=== PATIENT | male | born 1960 ===

== ENCOUNTER 2022-02-23 12:05 | Observation (INO) ==
[2022-02-23 13:54] LABS: ABS Basophils 0.1 10^3/ul (0-0.2); ABS Eosinophils 0.6 10^3/ul (0-0.6); ABS Lymphocytes 1.5 10^3/ul (1.0-4.8); ABS Monocytes 1.2 10^3/ul (0-0.8); ABS Neutrophils 8.4 10^3/ul (1.5-7.7); Eosinophil % 4.9 %; Hematocrit 31 % (42-52); Lymphocyte % 13.1 %; Mean Corpuscular HGB Conc 32 g/dL (31-36); Mean Corpuscular Hemoglobin 31 pg (27-31); Mean Corpuscular Volume 97 fL (80-94); Mean Platelet Volume 6.8 fL (7.4-10.4); Nucleated Red Blood Cells % 0.1; Platelet Count 330 10^3/uL (150-450); Red Blood Count 3.22 10^6 /uL (4.18-5.48); Red Cell Distribution Width 16 % (10-15); White Blood Count 11.7 10^3/uL (3.5-10.8)
[2022-02-23 14:32] LABS: C Reactive Protein 9.31 mg/L (<8.01); Calcium 8.7 mg/dL (8.6-10.3); eGFR CKD-EPI 65.3 (>60)
[2022-02-23] MEDS ORDERED: Dextrose 50% Syringe 50 ml 25 GM/50 ML SYRINGE IV PUSH ONE (14:36)
[2022-02-23] MEDS ORDERED: CALCIUM GLUCONATE 1GM/50ML NS 1 GM/50 ML BAG IV ONE (14:36)
[2022-02-23] MEDS ORDERED: Albuterol 2.5mg/3 ml (0.083%) NEB.SOLN INH ONE (14:36)
[2022-02-23 14:37] LABS: Potassium 7.1 mmol/L (3.5-5.0)
[2022-02-23 16:42] LABS: Potassium, Whole Blood 6.4 mmol/L (3.4-4.5)
[2022-02-23] MEDS ORDERED: Lactated Ringers 1000 ml BAG 1,000 ML IV ONE (17:20)
[2022-02-23] MEDS ORDERED: Sodium Polystyrene ORAL.SUSP 15 GM/60 ML BTL PO ONE ×2 (17:21→17:22)
[2022-02-23 17:23] LABS: Potassium, Whole Blood 6.6 mmol/L (3.4-4.5)
[2022-02-23] MEDS ORDERED: NS 0.9% 1000 ml BAG 1,000 ML IV ONE (18:11)
[2022-02-23 18:44] LABS: Potassium, Whole Blood 4.5 mmol/L (3.4-4.5)
[2022-02-23] MEDS ORDERED: Dextrose 50% Syringe 50 ml 25 GM/50 ML SYRINGE IV PUSH PRN (18:52)
[2022-02-23 19:13] LABS: Urine Benzodiazepine Screen None Detected (None Detect); Urine Buprenorphine Screen Presumptive Positive (None Detect); Urine Cannabinoids Screen None Detected (None Detect); Urine Fentanyl Screen None Detected (None Detect); Urine Hydrocodone Screen None Detected (None Detect); Urine Opiates Screen None Detected (None Detect)
[2022-02-23 19:42] LABS: Urine Appearance Clear; Urine Bilirubin Negative (Negative); Urine Blood Negative (Negative); Urine Color Yellow; Urine Glucose 1+ (250mg/dL) (Negative); Urine Ketones Negative (Negative); Urine Nitrite Negative (Negative); Urine Protein Negative (Negative); Urine Specific Gravity 1.025 (1.005-1.030); Urine Urobilinogen 0.2 (Negative) (Negative)
[2022-02-23] MEDS ORDERED: Enoxaparin 30 MG/0.3 ML SYR SUBCUT SCH (20:00)
[2022-02-23] MEDS ORDERED: Insulin GLARGINE 100 un/ml 10 ml VIAL SUBCUT SCH (21:00)
[2022-02-23 23:31] LABS: Blood Urea Nitrogen 16 mg/dL (6-24); CO2 Carbon Dioxide 24 mmol/L (22-32); Calcium 7.7 mg/dL (8.6-10.3); Chloride 106 mmol/L (101-111); Glucose 279 mg/dL (70-100); Sodium 134 mmol/L (135-145); eGFR CKD-EPI 67.2 (>60)
[2022-02-23 23:40] LABS: Anion Gap 4 mmol/L (2-11)
[2022-02-24] MEDS ORDERED: Acetaminophen IV 1 GM/100ML 100 ML IV ONE (03:49)
[2022-02-24 06:56] LABS: ABS Eosinophils 0.5 10^3/ul (0-0.6); ABS Lymphocytes 1.9 10^3/ul (1.0-4.8); ABS Monocytes 0.9 10^3/ul (0-0.8); ABS Neutrophils 4.8 10^3/ul (1.5-7.7); Eosinophil % 5.8 %; Hematocrit 28 % (42-52); Hemoglobin 9.1 g/dL (14.0-18.0); Lymphocyte % 23.6 %; Mean Corpuscular HGB Conc 32 g/dL (31-36); Mean Corpuscular Hemoglobin 31 pg (27-31); Mean Corpuscular Volume 97 fL (80-94); Mean Platelet Volume 7.3 fL (7.4-10.4); Platelet Count 276 10^3/uL (150-450); Red Cell Distribution Width 16 % (10-15); White Blood Count 8.1 10^3/uL (3.5-10.8)
[2022-02-24 07:08] LABS: Calcium 7.6 mg/dL (8.6-10.3); Potassium 4.3 mmol/L (3.5-5.0); eGFR CKD-EPI 80.3 (>60)
[2022-02-24] MEDS ORDERED: Saline NASAL SPRAY 0.65% BTL BOTH NARES PRN (08:24)
[2022-02-24] MEDS ORDERED: Fluticasone NASAL SPRAY 50MCG 16 gm SPRAY BTL BOTH NARES SCH (09:00)
[2022-02-24] MEDS ORDERED: Buprenorp/Nalox 8-2 MG FILM SL FILM SCH (09:00)
[2022-02-24 10:32] VITALS: BP 149/79
== END 2022-02-24 12:00 | disposition home or self-care (01) ==
LOC: ED 12:05 → EDHOLD 12:05 → SUATTDRO 18:21 → MEDTELE 23:30
PROVIDERS: ADMIT Internal Medicine; ATTEND Hospitalist